=== PATIENT | female | born 2000 | race Caucasian/White ===

== ENCOUNTER 2024-04-14 00:16 | Emergency (ER) | payer MEDICAID ==
[~2024-04-14] VITALS: Ht 167.6 cm; Wt 67.0 kg
[2024-04-14 00:18] VITALS: BP 130/90; PULSE 100; RESP 16; O2SAT 100
[2024-04-14 01:35] LABS: BASOPHILS % 0.5 % (0.0-2.0); EOSINOPHILS % 2.2 % (0.0-5.0); HEMATOCRIT. 38.1 % (36.0-48.0); HEMOGLOBIN. 12.8 g/dL (12.0-16.0); LYMPHOCYTES % 48.7 % (20.0-50.0); MEAN CORPUSCULAR HEMOGLOBIN 31.8 pg (28.0-32.0); MEAN CORPUSCULAR HGB CONC 33.7 g/dL (31.0-37.0); MEAN CORPUSCULAR VOLUME 94.1 fL (81.0-99.0); MEAN PLATELET VOLUME 9.2 fl (7.4-10.4); NEUTROPHILS % 41.6 % (40.0-76.0); PLATELET 211 x1000/uL (130-400); RED BLOOD CELL COUNT 4.04 mill/uL (4.2-5.4); RED CELL DISTRIBUTION WIDTH 13.4 % (11.6-14.6); WHITE BLOOD COUNT 6.3 x1000/uL (4.5-11.0)
[2024-04-14 01:39] LABS: CHLORIDE 107 mEq/L (98-107); POTASSIUM 3.2 mEq/L (3.5-5.1); SODIUM 141 mEq/L (136-145)
[2024-04-14 01:40] LABS: CALCIUM 9.2 mg/dL (8.7-10.4); CARBON DIOXIDE 26 mEq/L (21-32)
[2024-04-14 01:45] LABS: CREATININE 0.6 mg/dL (0.6-1.0); GLUCOSE 90 mg/dL (70-105); UREA NITROGEN BLOOD 8 mg/dL (9-23)
[2024-04-14 01:47] LABS: ACETAMINOPHEN 3 ug/mL (10-30)
[2024-04-14 01:52] LABS: HCG SCREEN NEGATIVE
[2024-04-14 01:55] LABS: ETHANOL BLOOD 333 mg/dL (<10)
[2024-04-14] MEDS ORDERED: POTA-203 MT (01:58)
[2024-04-14] MEDS ORDERED: NALO4SPR BOTHNSTRLS (01:58)
== END 2024-04-14 06:22 | disposition home or self-care (01) ==
LOC: ER 00:16
DX: T65.91XA Toxic effect of unspecified substance, accidental (unintentional), initial encounter (principal); E87.6 Hypokalemia; Z00.00 Encounter for general adult medical examination without abnormal findings; Y92.9 Unspecified place or not applicable
CPT/HCPCS: 80048; 80307; 80329; 80320; 84703; 85025; 36415; 99283; Z7610; G0480